=== PATIENT | female | born 1970 | race Caucasian/White ===

== ENCOUNTER 2017-06-15 17:12 | Emergency (ER) | payer OTHER ==
--- NOTE | 2017-06-15 18:02 | EDM.PDOC ---
ED HPI GENERAL MEDICAL PROBLEM - General Chief Complaint: Upper Extremity Injury/Pain Stated Complaint: LEFT ARM PAIN AFTER FALLING ON ICE Time Seen by Provider: 06/15/17 17:26 Source of Information: Reports: Patient History Limitations: Reports: No Limitations - History of Present Illness INITIAL COMMENTS - FREE TEXT/NARRATIVE: 47 y.o.w.curtis came with her PC after she fell onto her left wrist, while slipping on ICE. Has no limited ROM and pain. No other acute medical issues 136/78 RR 14 temp 36.7 pulse oc 96% Onset: Today Onset Date: 06/15/17 Onset Time: 16:30 Duration: Intermittent Location: Reports: Upper Extremity, Left Quality: Reports: Ache, Burning, Dull Severity: Mild Improves with: Reports: Rest Worsens with: Reports: Movement Context: Reports: Trauma (Fall on ICE) Associated Symptoms: Reports: No Other Symptoms Left Wrist Pain Score (Numeric/FACES): 5 - Related Data Allergies Allergy/AdvReac Type Severity Reaction Status Date / Time amoxicillin Allergy Difficulty Verified 06/15/17 17:24 Breathing sulfamethoxazole Allergy Hives Verified 06/15/17 17:24 [From Bactrim] trimethoprim [From Bactrim] Allergy Hives Verified 06/15/17 17:24 Home Meds: Home Meds Losartan/Hydrochlorothiazide [Losartan-HCTZ 50-12.5 MG] 25 mg PO DAILY 06/15/17 [History] Past Medical History HEENT History: Reports: Impaired Vision Other HEENT History: wears glasses Cardiovascular History: Reports: Hypertension Gastrointestinal History: Reports: Cholelithiasis LACE CUTTER History: Reports: Spontaneous , Other (See Below) Other OB/BYN History: D/C IN 2004 - Infectious Disease History Infectious Disease History: Reports: Chicken Pox - Past Surgical History GI Surgical History: Reports: Appendectomy, Cholecystectomy Social & Family History - Family History Family Medical History: Noncontributory - Tobacco Use Smoking Status *Q: Never Smoker Second Hand Smoke Exposure: No - Caffeine Use Caffeine Use: Reports: None - Recreational Drug Use Recreational Drug Use: No Review of Systems - Review of Systems Review Of Systems: See Below Constitutional: Reports: No Symptoms Eyes: Reports: No Symptoms Ears: Reports: No Symptoms Nose: Reports: No Symptoms Mouth/Throat: Reports: No Symptoms Respiratory: Reports: No Symptoms Cardiovascular: Reports: No Symptoms GI/Abdominal: Reports: No Symptoms Genitourinary: Reports: No Symptoms Musculoskeletal: Reports: No Symptoms Skin: Reports: No Symptoms Neurological: Reports: No Symptoms Psychiatric: Reports: No Symptoms ED EXAM, GENERAL - Physical Exam Exam: See Below Exam Limited By: No Limitations General Appearance: Alert, WD/WN, Mild Distress Eye Exam: Bilateral Eye: Normal Inspection Ears: Normal External Exam Ear Exam: Bilateral Ear: Auricle Normal Nose: Normal Inspection, Normal Mucosa Throat/Mouth: Normal Inspection, Normal Lips Head: Atraumatic, Normocephalic Neck: Normal Inspection, Supple, Non-Tender Respiratory/Chest: No Respiratory Distress, Lungs Clear, Normal Breath Sounds Cardiovascular: Normal Peripheral Pulses, Regular Rate, Rhythm, No Edema Peripheral Pulses: 1+: Radial (L) GI/Abdominal: Normal Bowel Sounds, Soft, Non-Tender, No Organomegaly (Female) Exam: Deferred Rectal (Female) Exam: Deferred Back Exam: Normal Inspection, Full Range of Motion Extremities: Joint Swelling (left wrist), Limited Range of Motion (left wrist) Neurological: Alert, Oriented, CN II-XII Intact, Normal Cognition Psychiatric: Normal Affect, Normal Mood Skin Exam: Warm, Dry, Intact, Normal Color, No Rash Lymphatic: No Adenopathy ED TRAUMA EXTREMITY PROCEDURES - Splinting Left Upper Extremity Pre-Procedure NV Status: Normal Post-Procedure NV Status: Normal Splint Material: Fiberglass, Sling Splint Design: Sugar Tong Applied & Form Fitted By: Provider Provider Post-Splint Application NV Check: NV Status Normal Complications: No Course - Vital Signs Text/Narrative:: 47 y.o.w.f came with her PC after she fell onto her left wrist, while slipping on ICE. Has no limited ROM and pain. No other acute medical issues 136/78 RR 14 temp 36.7 pulse oc 96% PE: Swelling left wrist with LROM Imaging: Left wrist comminuted Fx, minimally displaced. Impression: Left wrist comminuted distal radius fracture Fx, minimally displaced Tx: Splint, ICE, refused pain meds Reexam: Improved Plan: D/C with instructions Last Recorded V/S: Last Vital Signs Temp 36.9 C 06/15/17 17:26 Pulse 96 06/15/17 17:26 Resp 14 06/15/17 17:26 BP 138/90 06/15/17 17:26 Pulse Ox 99 06/15/17 17:26 - Orders/Labs/Meds Orders: Active Orders 24 hr Category Date Time Status Wrist Comp Min 3V Lt [CR] Stat Exams 06/15/17 17:28 Taken Departure - Departure Time of Disposition: 18:04 Disposition: Home, Self-Care 01 Condition: Good Clinical Impression: Radius head fracture Qualifiers: Encounter type: initial encounter Fracture type: closed Fracture alignment: nondisplaced Laterality: left Qualified Code(s): S52.125A - Nondisplaced fracture of head of left radius, initial encounter for closed fracture - Discharge Information Instructions: Wrist Fracture Treated With Immobilization Referrals: Zeferino Montano PA-C [Primary Care Provider] - Forms: ED Department Discharge Additional Instructions: Rest, ICE and elevation, motrin for pain, please f/u with ortho/hand syrgeon a.s.a.p Please come back if your symptoms get worse acutely - My Orders Last 24 Hours: My Active Orders 06/15/17 17:28 Wrist Comp Min 3V Lt [CR] Stat - Assessment/Plan Last 24 Hours: My Active Orders 06/15/17 17:28 Wrist Comp Min 3V Lt [CR] Stat
--- NOTE | 2017-06-16 10:46 | CR ---
INDICATION: Wrist pain top of hand. LEFT WRIST: Three views of the left wrist revealed a Colles' type fracture of the distal radius and the ulnar styloid, with satisfactory position and alignment of the fracture fragments - minimal deformity. The radial fracture site is comminuted with fracture lines extending into the joint surface. However, there was no significant distraction of those fracture fragments. Minimal degenerative changes are noted at the first metacarpal-carpal joint. IMPRESSION: Colles' fracture with satisfactory position and alignment. [facility]
== END 2017-06-15 18:07 | disposition home or self-care (01) ==
LOC: FB.ED 17:12
DX: S52.532A Colles' fracture of left radius, initial encounter for closed fracture (principal); S52.125A Nondisplaced fracture of head of left radius, initial encounter for closed fracture; I10 Essential (primary) hypertension; Z79.899 Other long term (current) drug therapy; Z88.1 Allergy status to other antibiotic agents; Z88.2 Allergy status to sulfonamides; W00.0XXA Fall on same level due to ice and snow, initial encounter
CPT/HCPCS: 29105; 29125; 73110-LT; 99283

== ENCOUNTER 2017-08-25 06:41 | Day surgery (SDC) | payer OTHER ==
[2017-08-25] MEDS ORDERED: Lactated Ringers 1,000 ML IV SCH (06:45)
[2017-08-25] MEDS ORDERED: Propofol 200 MG/20 ML SDV IV ONE (08:00)
[2017-08-25] MEDS ORDERED: fentaNYL 100 MCG/2 ML SDV IV ONE (08:00)
[2017-08-25] MEDS ORDERED: Midazolam 1 MG/ML 2 ML SDV IV ONE (08:00)
--- NOTE | 2017-08-25 08:17 | PCM.OPNOTE ---
- General Post-Op/Procedure Note Date of Surgery/Procedure: 08/25/17 Operative Procedure(s): c scope with bx Findings: cecal polyp transverse colon polyp Pre Op Diagnosis: hx of colon polyps. family hx of colon polyps and colon cancer Post-Op Diagnosis: cecal polyp. transverse colon polyp Anesthesia Technique: MAC Primary Surgeon: Davi Ochoa Anesthesia Provider: Sukhwinder Leone Pathology: cecal polyp transverse colon polyp Complications: None Condition: Good Free Text/Narrative:: see dictation
--- NOTE | 2017-08-25 09:19 | PREOP ---
ADMISSION DATE: 08/25/2017 CHIEF COMPLAINT: History of colonic polyps. HISTORY OF PRESENT ILLNESS: This is a 47-year-old white female, who presents for followup colonoscopy. She has a family history of colon cancer as well as colon polyps with first-degree relative. In addition, our first scope 8 years ago demonstrated tubular adenoma, with the last one 3 years later was normal, and it was recommended at that time she will have a followup scope in 5 years. She is currently without any significant complaints with regard to her GI tract. PAST MEDICAL HISTORY: Significant for anemia, appendicitis, history of colon polyps, concussion, dyslipidemia, heart murmur, hyperlipidemia, hypertension, obesity, reactive airway disease, which has exacerbated sleep apnea. PAST SURGICAL HISTORY: Significant for appendectomy, cholecystectomy, colonoscopy with polypectomy, D and C, laparoscopic appendectomy, and laparoscopic cholecystectomy. FAMILY HISTORY: Significant for cataracts, macular degeneration, squamous cell carcinoma of the skin, stroke, hypertension, colonic polyps, thyroid disease, and colon cancer as mentioned before. SOCIAL HISTORY: The patient is single. She has no children. 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 She does not smoke, does not drink. CURRENT MEDICATIONS: Include: 1. Claritin 10 mg 1 per day as needed. 2. Lotrisone cream applied to affected area twice a day for rash. 3. Losartan 100 mg half a tablet by mouth one time per day. 4. Cranberry as needed. 5. Turmeric p.o. as needed. 6. Osteo Bi-Flex two times a day. 7. [place]'s wort 300 mg capsule twice a day. 8. Artificial Tears every 4 hours as needed for dry eye. 9. Multivitamins one per day. 10.Vitamin D of 400 units per day. 11.Ascorbic acid 500 mg per day. 12.Calcium 500 mg per day. ALLERGIES: She is also allergic to [place] bandages, amoxicillin, Bactrim, fentanyl, grapefruit, and Band-Aids. REVIEW OF SYSTEMS: Review of systems is negative. HEENT: Positive for some dental issues. RESPIRATORY: Negative. CARDIOVASCULAR: Negative. GASTROINTESTINAL: Negative. MUSCULOSKELETAL: Negative. NEUROLOGIC: The patient notes some dizziness. She is currently under workup for this. PHYSICAL EXAMINATION: GENERAL: This is a well-developed, well-nourished female, appearing in no acute distress. HEENT: Grossly within normal limits. LUNGS: Clear to auscultation. CARDIAC: Heart had a regular rate and rhythm. ABDOMEN: Soft, nontender. ASSESSMENT: Personal history of colon polyps. PLAN: Colonoscope. Procedure and risks were explained to the patient. /[id number] /MODL
--- NOTE | 2017-08-25 15:51 | OR ---
DATE OF OPERATION: 08/25/2017 SURGEON: Davi Ochoa MD PREOPERATIVE DIAGNOSES: 1. Personal history of colon polyps. 2. Family history of colon polyps. 3. Colon cancer. POSTOPERATIVE DIAGNOSIS: Polyp of the cecum and transverse colon. PROCEDURE PERFORMED: Colonoscopy with cold forceps biopsy. INDICATIONS FOR PROCEDURE: This is a 47-year-old white female, who presents for a followup colonoscopy and she has the above mentioned history. She was offered and accepted same. DESCRIPTION OF OPERATION: After an excellent IV sedation was administered, digital rectal exam was performed. No marked abnormality was noted. Flexible colonoscope was inserted and advanced without difficulty to the cecum. The prep was excellent. The following findings were noted. Ascending colon; in the cecum, polypoid lesion, biopsied with cold forceps and sent for permanent. Transverse colon; in the distal transverse colon a small polyp, biopsied with cold biopsy forceps, and sent for permanent. Descending colon was unremarkable. Sigmoid was unremarkable. Rectum was unremarkable. The colon was deflated as the scope was removed. The patient tolerated the procedure well and was taken to recovery room in good condition. Results by letter. /[id number] /MODL
== END 2017-08-25 09:26 | disposition home or self-care (01) ==
LOC: FB.SDS 06:41
PROVIDERS: ATTEND Surgery
DX: Z12.11 Encounter for screening for malignant neoplasm of colon (principal); D12.0 Benign neoplasm of cecum; D12.3 Benign neoplasm of transverse colon; I10 Essential (primary) hypertension; E78.5 Hyperlipidemia, unspecified; E66.9 Obesity, unspecified; J45.909 Unspecified asthma, uncomplicated; G47.30 Sleep apnea, unspecified; Z86.010 Personal history of colon polyps; Z83.71 Family history of colonic polyps; Z88.1 Allergy status to other antibiotic agents; Z88.2 Allergy status to sulfonamides; Z91.018 Allergy to other foods; Z90.49 Acquired absence of other specified parts of digestive tract; Z79.899 Other long term (current) drug therapy
CPT/HCPCS: 81025; 88305; J2250; J2704; J3010; J7120